=== PATIENT | female | born 1955 | race Caucasian/White ===

== ENCOUNTER 2022-12-22 21:49 | Inpatient (IN) | payer OTHER, MEDICARE ==
[~2022-12-22] VITALS: Ht 152.4 cm; Wt 71.7 kg
[~2022-12-22 21:49] MED LIST: ATENOLOL100 MG PO; MYRBETRIQ25 MG PO; NIFEDICAL XL30 MG PO; NIFEDIPINE ER60 MG PO; PROCARDIA XL30 MG PO; PROTONIX PO
[2022-12-22] MEDS ORDERED: IBUPROFEN 600 MG TAB PO STA (22:49)
[2022-12-23] VITALS (10 sets, daily range): BP systolic 121–171; BP diastolic 52–89; PULSE 76–85; RESP 16–18; TEMP 97.2–99.1; O2SAT 96–100
[2022-12-23 00:23] LABS: BASOPHILS % 0.3 % (0.0-1.0); EOSINOPHILS % 0.1 % (0.0-6.0); HEMOGLOBIN 12.1 g/dL (12.0-16.0); LYMPHOCYTES # (AUTO) 0.8 (1.0-3.2); LYMPHOCYTES % 5.5 % (18.0-39.1); MEAN CORPUSCULAR HEMOGLOBIN 29.7 pg (28-32); MEAN CORPUSCULAR HGB CONC 32.7 g/dL (31-35); MEAN CORPUSCULAR VOLUME 90.9 fL (81-99); MONOCYTES # (AUTO) 0.5 (0.2-0.8); MONOCYTES % 3.7 % (4.4-11.3); NEUTROPHILS # (AUTO) 12.3 (2.1-6.9); NEUTROPHILS % 89.9 % (38.7-80.0); PLATELET COUNT 156 x10e3/uL (140-360); RED BLOOD COUNT 4.07 x10e6/uL (3.6-5.1); RED CELL DISTRIBUTION WIDTH 14.1 % (11.7-14.4); WHITE BLOOD COUNT 13.67 x10e3/uL (4.8-10.8)
[2022-12-23 00:42] LABS: ALBUMIN 3.6 g/dL (3.5-5.0); ALBUMIN/GLOBULIN RATIO 0.9 (0.8-2.0); ANION GAP 15.9 mmol/L (8-16); BILIRUBIN,TOTAL 0.5 mg/dL (0.2-1.2); CALCIUM 9.2 mg/dL (8.4-10.2); CREATININE, SERUM 0.8 mg/dL (0.57-1.11); POTASSIUM 3.9 mmol/L (3.5-5.1); TOTAL PROTEIN 7.6 g/dL (6.5-8.1)
[2022-12-23] MEDS: ONDANSETRON HCL INJ 2MG/ML 2ML 2 MG/ML VIAL IV PRN (02:06)
[2022-12-23] MEDS: SODIUM CHLORIDE 0.9% 1000ML 1,000 ML IV SCH ×3 (02:06→16:30)
[2022-12-23] MEDS: Morphine 4mg INJECTION 4 MG/ML INJ IV PRN ×2 (02:06→21:58)
[2022-12-23] MEDS ORDERED: FEMARA2.5 MG PO (04:23)
[2022-12-23] MEDS ORDERED: DEXAMETHASONE SOD PHOS INJ 4 MG/ML SDV ONE (12:16)
[2022-12-23] MEDS ORDERED: SUCCINYLCHOLINE CHLORIDE 20 MG/ML 10ML VIAL ONE (12:16)
[2022-12-23] MEDS ORDERED: PROPOFOL IV EMULSION 10 MG/ML 20 ML VIAL ONE (12:16)
[2022-12-23] MEDS ORDERED: ONDANSETRON HCL INJ 2MG/ML 2ML 2 MG/ML VIAL ONE ×2 (12:16→21:18)
[2022-12-23] MEDS ORDERED: SEVOFLURANE INHAL SOLN 250 ML PEN BTL ONE (12:16)
[2022-12-23] MEDS ORDERED: FENTANYL CITRATE/PF 100MCG/2 ML INJ ONE (14:36)
[2022-12-23] MEDS ORDERED: BUPIVACAINE 0.25% 30ML SDV ONE (20:22)
[2022-12-23] MEDS ORDERED: BUPIVACAINE HCL 0.5% INJ 30 ML VIAL INJ ONE (20:22)
[2022-12-23] MEDS ORDERED: ACETAMINOPHEN 1000 MG/100 ML 100 ML IV ONE (20:40)
[2022-12-23] MEDS: HYDROMORPHONE 1MG/1ML INJ ONE ×2 (20:50→20:55)
[2022-12-23] MEDS: FENTANYL CITRATE/PF 100MCG/2 ML INJ ONE ×3 (21:00→21:20)
[2022-12-23] MEDS ORDERED: HYDROMORPHONE 1MG/1ML INJ IV PRN (22:30)
[2022-12-24] VITALS (9 sets, daily range): BP systolic 114–154; BP diastolic 49–69; PULSE 75–88; RESP 16–18; TEMP 97.6–99.9; O2SAT 100
[2022-12-24] MEDS: SODIUM CHLORIDE 0.9% 1000ML 1,000 ML IV SCH ×3 (00:30→20:55)
[2022-12-24] MEDS: OXYCODONE/ACETAMINOPHEN 5-325 1 EACH TABLET PO PRN ×2 (01:24→22:23)
[2022-12-24 06:21] LABS: INR 1.26; PROTHROMBIN TIME 16.1 seconds (11.9-14.5)
[2022-12-24 06:22] LABS: PARTIAL THROMBOPLASTIN TIME 33.8 seconds (23.8-35.5)
[2022-12-24] MEDS ORDERED: MAGNESIUM HYDROXIDE 30 ML UDC PO PRN (10:00)
[2022-12-24] MEDS: Morphine 4mg INJECTION 4 MG/ML INJ IV PRN (12:07)
[2022-12-24] MEDS: ONDANSETRON HCL INJ 2MG/ML 2ML 2 MG/ML VIAL IV PRN (12:07)
[2022-12-24] MEDS: SENNA-S TABLET PO SCH (17:41)
[2022-12-25 03:37] VITALS: BP 116/70; PULSE 70; RESP 16; TEMP 98.1; O2SAT 100
[2022-12-25 07:01] LABS: ANION GAP 9.3 mmol/L (8-16); CALCIUM 7.8 mg/dL (8.4-10.2); CREATININE, SERUM 0.7 mg/dL (0.57-1.11); POTASSIUM 4.3 mmol/L (3.5-5.1)
[2022-12-25 07:35] LABS: BASOPHILS % 0.6 % (0.0-1.0); EOSINOPHILS # (AUTO) 0.4 (0.0-0.4); EOSINOPHILS % 5.3 % (0.0-6.0); HEMOGLOBIN 8.5 g/dL (12.0-16.0); LYMPHOCYTES # (AUTO) 1.4 (1.0-3.2); LYMPHOCYTES % 20.8 % (18.0-39.1); MEAN CORPUSCULAR HEMOGLOBIN 29.6 pg (28-32); MEAN CORPUSCULAR HGB CONC 32.3 g/dL (31-35); MEAN CORPUSCULAR VOLUME 91.6 fL (81-99); MONOCYTES # (AUTO) 0.5 (0.2-0.8); MONOCYTES % 7.4 % (4.4-11.3); NEUTROPHILS # (AUTO) 4.3 (2.1-6.9); NEUTROPHILS % 65.6 % (38.7-80.0); RED BLOOD COUNT 2.87 x10e6/uL (3.6-5.1); RED CELL DISTRIBUTION WIDTH 14.5 % (11.7-14.4)
[2022-12-25 07:38] LABS: HEMATOCRIT 26.3 % (34.2-44.1)
[2022-12-25 07:39] LABS: PLATELET COUNT 106 x10e3/uL (140-360)
[2022-12-25 08:21] VITALS: BP 120/55; PULSE 75; RESP 18; TEMP 98.4; O2SAT 100
[2022-12-25] MEDS: SENNA-S TABLET PO SCH ×2 (09:21→18:10)
[2022-12-25] MEDS: SODIUM CHLORIDE 0.9% 1000ML 1,000 ML IV SCH (09:23)
[2022-12-25] MEDS: OXYCODONE/ACETAMINOPHEN 5-325 1 EACH TABLET PO PRN ×2 (10:31→21:36)
[2022-12-25 12:19] VITALS: BP 118/58; PULSE 81; RESP 18; TEMP 97.9; O2SAT 98
[2022-12-25] MEDS ORDERED: FUROSEMIDE INJ 10 MG/ML 4 ML VIAL IV ONE (12:30)
[2022-12-25 15:56] VITALS: BP 143/64; PULSE 80; RESP 18; TEMP 98.8; O2SAT 97
[2022-12-25] MEDS: ENOXAPARIN SOD INJ 40 MG/0.4 ML SYR SC SCH (18:11)
[2022-12-25 20:00] VITALS: BP 131/57; PULSE 85; RESP 18; TEMP 99; O2SAT 100
[2022-12-25 20:48] VITALS: BP 133/59; PULSE 86; RESP 19; TEMP 98.6; O2SAT 98
[2022-12-26] VITALS (8 sets, daily range): BP systolic 99–137; BP diastolic 61–69; PULSE 73–87; RESP 16–18; TEMP 97.9–100.4; O2SAT 95–100
[2022-12-26 05:36] LABS: BASOPHILS % 0.4 % (0.0-1.0); EOSINOPHILS # (AUTO) 0.4 (0.0-0.4); EOSINOPHILS % 5.4 % (0.0-6.0); HEMATOCRIT 28.3 % (34.2-44.1); HEMOGLOBIN 9.3 g/dL (12.0-16.0); LYMPHOCYTES # (AUTO) 1.5 (1.0-3.2); LYMPHOCYTES % 22.2 % (18.0-39.1); MEAN CORPUSCULAR HEMOGLOBIN 29.8 pg (28-32); MEAN CORPUSCULAR HGB CONC 32.9 g/dL (31-35); MEAN CORPUSCULAR VOLUME 90.7 fL (81-99); MONOCYTES # (AUTO) 0.5 (0.2-0.8); MONOCYTES % 7.7 % (4.4-11.3); NEUTROPHILS # (AUTO) 4.3 (2.1-6.9); NEUTROPHILS % 64.2 % (38.7-80.0); PLATELET COUNT 128 x10e3/uL (140-360); RED BLOOD COUNT 3.12 x10e6/uL (3.6-5.1); RED CELL DISTRIBUTION WIDTH 14.3 % (11.7-14.4); WHITE BLOOD COUNT 6.72 x10e3/uL (4.8-10.8)
[2022-12-26 06:06] LABS: ANION GAP 11.5 mmol/L (8-16); CALCIUM 8.1 mg/dL (8.4-10.2); CREATININE, SERUM 0.73 mg/dL (0.57-1.11); POTASSIUM 3.5 mmol/L (3.5-5.1)
[2022-12-26] MEDS: SENNA-S TABLET PO SCH ×2 (09:54→16:53)
[2022-12-26] MEDS: OXYCODONE/ACETAMINOPHEN 5-325 1 EACH TABLET PO PRN ×2 (10:13→21:25)
[2022-12-26] MEDS ORDERED: BARIATRIC MV-I1 EACH (16:46)
[2022-12-26] MEDS: ENOXAPARIN SOD INJ 40 MG/0.4 ML SYR SC SCH (16:53)
[2022-12-27] VITALS (9 sets, daily range): BP systolic 115–136; BP diastolic 53–66; PULSE 72–85; RESP 16–19; TEMP 97.9–99.1; O2SAT 98–100
[2022-12-27] MEDS: SENNA-S TABLET PO SCH ×2 (09:44→17:24)
[2022-12-27] MEDS: OXYCODONE/ACETAMINOPHEN 5-325 1 EACH TABLET PO PRN ×2 (12:31→21:56)
[2022-12-27] MEDS: ENOXAPARIN SOD INJ 40 MG/0.4 ML SYR SC SCH (17:24)
[2022-12-28] VITALS (7 sets, daily range): BP systolic 118–142; BP diastolic 64–77; PULSE 65–87; RESP 16–18; TEMP 97.9–98.8; O2SAT 98–100
[2022-12-28] MEDS ORDERED: ONDANSETRON HCL 4 MG ORAL DISINTEGRATING TAB PO PRN (08:30)
[2022-12-28] MEDS: SENNA-S TABLET PO SCH ×2 (13:05→16:57)
[2022-12-28] MEDS: ENOXAPARIN SOD INJ 40 MG/0.4 ML SYR SC SCH (16:57)
[2022-12-28] MEDS: OXYCODONE/ACETAMINOPHEN 5-325 1 EACH TABLET PO PRN (22:47)
[2022-12-29] VITALS (8 sets, daily range): BP systolic 127–142; BP diastolic 66–83; PULSE 69–94; RESP 16–18; TEMP 98–98.6; O2SAT 96–100
[2022-12-29 06:01] LABS: BASOPHILS % 0.4 % (0.0-1.0); EOSINOPHILS # (AUTO) 0.3 (0.0-0.4); EOSINOPHILS % 4.3 % (0.0-6.0); HEMOGLOBIN 9.2 g/dL (12.0-16.0); LYMPHOCYTES # (AUTO) 1.7 (1.0-3.2); LYMPHOCYTES % 22.9 % (18.0-39.1); MEAN CORPUSCULAR HEMOGLOBIN 29.1 pg (28-32); MEAN CORPUSCULAR HGB CONC 32.9 g/dL (31-35); MEAN CORPUSCULAR VOLUME 88.6 fL (81-99); MONOCYTES # (AUTO) 0.6 (0.2-0.8); MONOCYTES % 8.1 % (4.4-11.3); NEUTROPHILS # (AUTO) 4.7 (2.1-6.9); NEUTROPHILS % 63.8 % (38.7-80.0); PLATELET COUNT 164 x10e3/uL (140-360); RED BLOOD COUNT 3.16 x10e6/uL (3.6-5.1); RED CELL DISTRIBUTION WIDTH 13.6 % (11.7-14.4); WHITE BLOOD COUNT 7.42 x10e3/uL (4.8-10.8)
[2022-12-29 06:20] LABS: ANION GAP 14.6 mmol/L (8-16); CALCIUM 8.9 mg/dL (8.4-10.2); CREATININE, SERUM 0.73 mg/dL (0.57-1.11); POTASSIUM 4.6 mmol/L (3.5-5.1)
[2022-12-29] MEDS: SENNA-S TABLET PO SCH ×2 (08:34→16:59)
[2022-12-29] MEDS: ENOXAPARIN SOD INJ 40 MG/0.4 ML SYR SC SCH (17:11)
[2022-12-29] MEDS: OXYCODONE/ACETAMINOPHEN 5-325 1 EACH TABLET PO PRN (22:08)
[2022-12-30] VITALS (8 sets, daily range): BP systolic 103–135; BP diastolic 55–74; PULSE 65–96; RESP 17–20; TEMP 98.1–99.3; O2SAT 95–100
[2022-12-30] MEDS: OXYCODONE/ACETAMINOPHEN 5-325 1 EACH TABLET PO PRN (09:27)
[2022-12-30] MEDS: SENNA-S TABLET PO SCH ×2 (09:27→17:35)
[2022-12-30] MEDS: ENOXAPARIN SOD INJ 40 MG/0.4 ML SYR SC SCH (17:34)
[2022-12-31] VITALS (9 sets, daily range): BP systolic 118–153; BP diastolic 57–85; PULSE 62–109; RESP 18–20; TEMP 97.5–100; O2SAT 99–100
[2022-12-31] MEDS: SENNA-S TABLET PO SCH ×2 (09:36→17:17)
[2022-12-31] MEDS: ENOXAPARIN SOD INJ 40 MG/0.4 ML SYR SC SCH (17:17)
[2023-01-01] VITALS (8 sets, daily range): BP systolic 113–141; BP diastolic 59–76; PULSE 72–83; RESP 18–20; TEMP 97.7–98.4; O2SAT 95–100
[2023-01-01] MEDS: SENNA-S TABLET PO SCH ×2 (10:56→17:10)
[2023-01-02] VITALS (7 sets, daily range): BP systolic 123–153; BP diastolic 57–78; PULSE 77–87; RESP 16–18; TEMP 97.3–98.3; O2SAT 98–100
[2023-01-02] MEDS: SENNA-S TABLET PO SCH ×2 (09:41→17:45)
[2023-01-03] VITALS (7 sets, daily range): BP systolic 118–153; BP diastolic 57–78; PULSE 74–89; RESP 17–20; TEMP 97.6–98.7; O2SAT 99–100
[2023-01-03] MEDS: SENNA-S TABLET PO SCH ×2 (08:31→17:00)
[2023-01-03 08:54] LABS: BASOPHILS % 0.5 % (0.0-1.0); EOSINOPHILS # (AUTO) 0.3 (0.0-0.4); EOSINOPHILS % 5.1 % (0.0-6.0); HEMATOCRIT 29.7 % (34.2-44.1); HEMOGLOBIN 9.5 g/dL (12.0-16.0); LYMPHOCYTES # (AUTO) 0.9 (1.0-3.2); MEAN CORPUSCULAR HEMOGLOBIN 29.1 pg (28-32); MEAN CORPUSCULAR VOLUME 90.8 fL (81-99); MONOCYTES # (AUTO) 0.4 (0.2-0.8); NEUTROPHILS # (AUTO) 4.2 (2.1-6.9); NEUTROPHILS % 72.1 % (38.7-80.0); PLATELET COUNT 204 x10e3/uL (140-360); RED BLOOD COUNT 3.27 x10e6/uL (3.6-5.1); RED CELL DISTRIBUTION WIDTH 13.8 % (11.7-14.4); WHITE BLOOD COUNT 5.86 x10e3/uL (4.8-10.8)
[2023-01-03] MEDS: ASPIRIN 81 MG ENTERIC COATED PO SCH ×3 (09:00→17:00)
[2023-01-03 09:33] LABS: ANION GAP 13.3 mmol/L (8-16); CREATININE, SERUM 0.73 mg/dL (0.57-1.11); POTASSIUM 4.3 mmol/L (3.5-5.1)
[2023-01-03] MEDS: PANTOPRAZOLE SOD 40 MG TABEC PO SCH ×2 (11:00→11:02)
[2023-01-04] VITALS: BP 159/72; PULSE 85; RESP 17; TEMP 98.3; O2SAT 100
[2023-01-04 02:30] VITALS: BP 159/72; PULSE 85; RESP 17; TEMP 98.3; O2SAT 100
[2023-01-04 04:00] VITALS: BP 113/61; PULSE 83; RESP 16; TEMP 98.1; O2SAT 99
[2023-01-04] MEDS: PANTOPRAZOLE SOD 40 MG TABEC PO SCH (07:30)
[2023-01-04 07:57] VITALS: BP 131/61; PULSE 88; RESP 18; TEMP 98.9; O2SAT 100
[2023-01-04 09:00] VITALS: BP 131/61; PULSE 88; RESP 18; TEMP 98.9; O2SAT 100
[2023-01-04] MEDS: ASPIRIN 81 MG ENTERIC COATED PO SCH ×2 (09:00→17:00)
[2023-01-04] MEDS: SENNA-S TABLET PO SCH ×2 (09:01→17:00)
[2023-01-04 11:50] VITALS: BP 139/81; PULSE 96; RESP 19; TEMP 98.1; O2SAT 100
== END 2023-01-04 17:55 | disposition home health service (06) | DRG 482 ==
LOC: ER 22:54 → ERHOLD 12-23 00:20 → MED/SURG2 12-23 02:20 → OBSVTOIN 12-23 15:57
PROVIDERS: ADMIT Internal Medicine; ATTEND Internal Medicine
PROC: 0QHB06Z Insertion of Intramedullary Internal Fixation Device into Right Lower Femur, Open Approach (ICD-10-PCS; principal; 2022-12-23 17:59)
DX: S72.401A Unspecified fracture of lower end of right femur, initial encounter for closed fracture (principal); I10 Essential (primary) hypertension; E66.9 Obesity, unspecified; Z74.2 Need for assistance at home and no other household member able to render care; W01.0XXA Fall on same level from slipping, tripping and stumbling without subsequent striking against object, initial encounter; Y93.01 Activity, walking, marching and hiking; R26.89 Other abnormalities of gait and mobility; Z79.69 Long term (current) use of other immunomodulators and immunosuppressants; Y92.9 Unspecified place or not applicable; Z85.42 Personal history of malignant neoplasm of other parts of uterus; Z68.30 Body mass index [BMI] 30.0-30.9, adult; Z98.84 Bariatric surgery status; Z20.822 Contact with and (suspected) exposure to COVID-19
CPT/HCPCS: 36415; 71045; 76000; 80048; 80053; 85025; 85610; 85730; 93005; 99284; C1713; J0330; J0690; J1100; J1170; J1650; J1940; J2270; J2405; J7030; U0002